=== PATIENT | female | born 1970 | race Caucasian/White ===

== ENCOUNTER 2018-04-23 11:38 | Emergency (ER) | payer OTHER ==
[~2018-04-23] VITALS: Ht 160 cm; Wt 103.9 kg
--- NOTE | 2018-04-23 11:48 | NUR ---
PT AMBULATES TO BED 6
[2018-04-23 11:54] VITALS: BP 140/85
--- NOTE | 2018-04-23 11:58 | NUR ---
PATIENT PRESENTS TO ED WITH c/o persistant productive cough, chest congestion, fatigue, bodyaches x 3 adds symptoms feel as worsening full clear speech , no tripoding or accessory muscle use noted . DENIES N/V/D; SKIN IS PINK/WARM/DRY; AAOX4 WITH EVEN AND STEADY GAIT; ; HR EVEN AND REGULAR; ; PATIENT STATES PAIN OF 0/10 AT THIS TIME; VSS; PATIENT POSITIONED FOR COMFORT; HOB ELEVATED; BEDRAILS UP X2; BED DOWN. ER MD MADE AWARE OF PT STATUS.
[2018-04-23] MEDS ORDERED: ALBUTEROL SULFATE/IPRATROPIU 3 ML SOL IH ONE (12:45)
[2018-04-23] MEDS ORDERED: cefTRIAXone 1,000 MG in LIDOCAINE 1% ***ER ONLY *** 2.1 ML IM ONE (12:45)
[2018-04-23] MEDS ORDERED: methylPREDNISolone SS 125 MG in WATER STERILE 2 ML IM ONE (12:45)
[2018-04-23 12:58] LABS: APPEARANCE,URINE CLEAR (CLEAR); BILIRUBIN,URINE NEGATIVE (NEGATIVE); BLOOD, URINE NEGATIVE (NEGATIVE); COLOR,URINE YELLOW (YELLOW); LEUKOCYTE ESTERASE ,URINE TRACE (NEGATIVE); NITRITE, URINE NEGATIVE (NEGATIVE); UGLUCOSE NEGATIVE (NEGATIVE)
[2018-04-23] MEDS ORDERED: cefTRIAXone 1,000 MG VIAL ONE (13:00)
[2018-04-23] MEDS ORDERED: LIDOCAINE MPF 1% 5mL VIAL ONE (13:01)
[2018-04-23 13:06] LABS: BARBITURATE, URINE NEG. ng/ml (NEG <=200); BENZODIAZEPINE, URINE NEG. ng/mL (NEG <=200); CANNABINOID, URINE NEG. ng/mL (NEG <=50); COCAINE, URINE NEG. ng/mL (NEG <=300); OPIATE, URINE NEG. ng/mL (NEG <=2000); PHENCYCLIDINE SCREEN,URINE NEG. ng/mL (NEG <=25)
[2018-04-23 13:13] LABS: RBC,URINE 0-5 (RARE) /HPF (0-5); WBC,URINE 6-15 (FEW) /HPF (0-5)
[2018-04-23 13:50] VITALS: BP 138/82
--- NOTE | 2018-04-23 13:50 | NUR ---
Patient discharged with v/s stable. Written and verbal after care instructions given and explained. Patient alert, oriented and verbalized understanding of instructions. Ambulatory with steady gait. All questions addressed prior to discharge. ID band removed. Patient advised to follow up with PMD. Rx of LEVAQUIN 500MG AND PROMETHAZINE DM AND MOTRIN 800MG given. Patient educated on indication of medication including possible reaction and side effects. Opportunity to ask questions provided and answered.
== END 2018-04-23 13:50 | disposition home or self-care (01) ==
LOC: MED 11:38
DX: J02.9 Acute pharyngitis, unspecified (principal); J06.9 Acute upper respiratory infection, unspecified; N39.0 Urinary tract infection, site not specified; I10 Essential (primary) hypertension
CPT/HCPCS: 36415; 80305; 81001; 81025; 87086; 87804; 94640; 96372; 99283; J0696; J2001; J2930; J7620

== ENCOUNTER 2019-01-31 13:22 | Emergency (ER) | payer OTHER ==
[~2019-01-31] VITALS: Ht 162.6 cm; Wt 99.8 kg
[2019-01-31 13:29] VITALS: BP 145/72
[2019-01-31] MEDS ORDERED: LIDOCAINE MPF 1% 10 MG/ML VIAL INJ ONE (13:55)
--- NOTE | 2019-01-31 13:57 | NUR ---
Patient states that she began to have back pain in her lower back, right side yesterday. She describes the pain as a sharp stabbing pain with walking and standing. She took Ibprofen yesterday and it did not relieve the pain. She denies any nausea, vomitting, pain with urination. Addendum: 01/31/19 at 1404 by [facility] HX: bulging disc in the lumbar area, kidney stone, htn
--- NOTE | 2019-01-31 14:42 | NUR ---
DR. PERKINS AT BEDSIDE.
[2019-01-31] MEDS ORDERED: IBUPROFEN 400 MG TAB PO ONE (14:50)
[2019-01-31 15:42] VITALS: BP 132/65
== END 2019-01-31 15:40 | disposition home or self-care (01) ==
LOC: MED 13:22
DX: M54.5 Low back pain (principal); I10 Essential (primary) hypertension; Z87.39 Personal history of other diseases of the musculoskeletal system and connective tissue
CPT/HCPCS: 20552; 99284; J2001

== ENCOUNTER 2020-01-06 16:04 | Emergency (ER) | payer OTHER ==
[~2020-01-06] VITALS: Ht 162.6 cm; Wt 108.4 kg
[2020-01-06 16:06] VITALS: BP 123/68
--- NOTE | 2020-01-06 16:20 | NUR ---
49 YEAR OLD FEMALE COMPLAINS OF ABDOMINAL PAIN, NAUSEA, AND VOMITTING X YESTERDAY. PT STATES PAIN RADIATES FROM ABDOMINAL TO LOWER BACK FLANK AREA. PT AOX4, BREATHING EVEN AND UNLABORED, SKIN WARM AND DRY. BED IN LOWEST POSITION, LOCKED, BED RAIL UPX1. PMH - HTN ALLERGIES - NKA
[2020-01-06] MEDS ORDERED: NACL 0.9% 500 ML IV ONE (16:35)
[2020-01-06] MEDS ORDERED: KETOROLAC 30 MG/ML VIAL IVP ONE (16:35)
[2020-01-06 17:11] LABS: BASOPHILS # (AUTO) 0.1 K/uL (0.00-0.22); BASOPHILS % (AUTO) 0.9 % (0.0-2.0); EOSINOPHILS # (AUTO) 0.1 K/uL (0-0.4); HEMATOCRIT 38.6 % (36-48); HEMOGLOBIN 12.6 g/dL (12.0-16.0); LYMPHOCYTES # (AUTO) 1.3 K/uL (2.5-16.5); MEAN CORPUSCULAR HEMOGLOBIN 28 pg (27-31); MEAN CORPUSCULAR HGB CONC 33 g/dL (33-37); MEAN CORPUSCULAR VOLUME 86.1 fL (80-94); MONOCYTES # (AUTO) 0.9 K/uL (0.8-1.0); MONOCYTES % (AUTO) 6.3 % (1.7-9.3); NEUTROPHILS % (AUTO) 82.8 % (42.2-75.2); PLATELET COUNT (AUTO) 380 K/uL (140-450); RED BLOOD CELL COUNT(AUTO) 4.48 MIL/uL (4.20-5.40); RED CELL DISTRIBUTION WIDTH 15.5 % (11.6-13.7); WHITE BLOOD COUNT (AUTO) 14.5 K/uL (4.8-10.8)
[2020-01-06 17:34] LABS: ALBUMIN 3.9 g/dL (3.4-5.0); ANION GAP 13.6 (8-16); CARBON DIOXIDE 25.2 mmol/L (21-32); CREATININE 0.8 mg/dL (0.6-1.3); POTASSIUM 3.8 mmol/L (3.5-5.1); TOTAL BILIRUBIN 0.7 mg/dL (0.0-1.0)
[2020-01-06 17:59] VITALS: BP 123/68
--- NOTE | 2020-01-06 18:00 | NUR ---
DPatient discharged with v/s stable. Written and verbal after care instructions about abdominal pain and constipation given and explained. Patient alert, oriented and verbalized understanding of instructions. Ambulatory with steady gait. All questions addressed prior to discharge. ID band removed. Patient advised to follow up with PMD. Rx of miralax and mineral oil given. Patient educated on indication of medication including possible reaction and side effects. Opportunity to ask questions provided and answered.
--- NOTE | 2020-01-08 03:09 | NUR ---
late entry----- spoke with Stephen STARR regarding end times, as follows: 01/06/20 Sodium Chloride 0.9%, End time: [id number]
== END 2020-01-06 17:59 | disposition home or self-care (01) ==
LOC: MED 16:04
DX: K59.00 Constipation, unspecified (principal); R19.7 Diarrhea, unspecified; I10 Essential (primary) hypertension
CPT/HCPCS: 36415; 74018; 76705; 80053; 83690; 85025; 96361; 96374; 99285; J1885; Q0092; J7030

== ENCOUNTER 2022-03-26 10:47 | Day surgery (SDC) | payer OTHER ==
[~2022-03-26] VITALS: Ht 162.6 cm; Wt 104.3 kg
[2022-03-26] MEDS ORDERED: MIDAZOLAM 5 MG/5 ML VIAL ONE (11:54)
[2022-03-26] MEDS ORDERED: LIDOCAINE 2% 100 MG/5 ML UJET TP ONE (11:54)
[2022-03-26] MEDS ORDERED: fentaNYL citrate 0.05 MG/ML VIAL ONE (11:54)
[2022-03-26] MEDS ORDERED: fentaNYL citrate 0.05 MG/ML VIAL IVP ONE (13:20)
[2022-03-26] MEDS ORDERED: MIDAZOLAM 2 MG/2 ML VIAL IVP ONE (13:20)
== END 2022-03-26 13:50 | disposition home or self-care (01) ==
LOC: MDS 10:47 → MMU 10:48 → MDS 13:50
PROVIDERS: ATTEND Internal Medicine Gastroenterology
DX: Z12.11 Encounter for screening for malignant neoplasm of colon (principal); K57.30 Diverticulosis of large intestine without perforation or abscess without bleeding; K21.9 Gastro-esophageal reflux disease without esophagitis; I10 Essential (primary) hypertension; E66.9 Obesity, unspecified; Z20.822 Contact with and (suspected) exposure to COVID-19; Z79.899 Other long term (current) drug therapy; Z68.30 Body mass index [BMI] 30.0-30.9, adult
CPT/HCPCS: 36415; 43239; 45378; 86677; 87426; J2250; J3010

== ENCOUNTER 2022-11-09 11:40 | Emergency (ER) | payer OTHER ==
[~2022-11-09] VITALS: Ht 162.6 cm; Wt 104.6 kg
[2022-11-09 11:50] VITALS: BP 140/75; PULSE 80; RESP 20; TEMP 97.6; O2SAT 100
[2022-11-09] MEDS ORDERED: ONDANSETRON 4 MG ODT PO ONE (14:40)
[2022-11-09] MEDS ORDERED: KETOROLAC 30 MG/ML VIAL IM ONE (14:40)
[2022-11-09 15:11] LABS: BASOPHILS # (AUTO) 0.2 K/uL (0.00-0.22); EOSINOPHILS # (AUTO) 0.1 K/uL (0-0.4); EOSINOPHILS % (AUTO) 0.6 % (0.0-4.0); HEMATOCRIT 37.6 % (36-48); HEMOGLOBIN 12.1 g/dL (12.0-16.0); LYMPHOCYTES # (AUTO) 1.4 K/uL (2.5-16.5); LYMPHOCYTES % (AUTO) 8.3 % (20.5-51.1); MEAN CORPUSCULAR HEMOGLOBIN 26 pg (27-31); MEAN CORPUSCULAR HGB CONC 32 g/dL (33-37); MEAN CORPUSCULAR VOLUME 81.5 fL (80-94); MONOCYTES # (AUTO) 1.1 K/uL (0.8-1.0); MONOCYTES % (AUTO) 6.4 % (1.7-9.3); NEUTROPHILS # (AUTO) 14.3 K/uL (1.8-7.7); NEUTROPHILS % (AUTO) 83.7 % (42.2-75.2); PLATELET COUNT (AUTO) 423 K/uL (140-450); RED BLOOD CELL COUNT(AUTO) 4.62 MIL/uL (4.20-5.40); RED CELL DISTRIBUTION WIDTH 16.5 % (11.6-13.7)
[2022-11-09 15:23] LABS: APPEARANCE,URINE CLEAR (CLEAR); BILIRUBIN,URINE NEGATIVE (NEGATIVE); BLOOD, URINE NEGATIVE (NEGATIVE); COLOR,URINE YELLOW (YELLOW); LEUKOCYTE ESTERASE ,URINE NEGATIVE (NEGATIVE); NITRITE, URINE NEGATIVE (NEGATIVE); PROTEIN,URINE NEGATIVE (NEGATIVE); UGLUCOSE NEGATIVE (NEGATIVE); UROBILINOGEN,URINE 0.2 EU/dL (0.2 - 1)
[2022-11-09 15:23] LABS: ALBUMIN 3.6 g/dL (3.4-5.0); ANION GAP 14.6 (8-16); CALCIUM 8.9 mg/dL (8.5-10.1); CARBON DIOXIDE 24.5 mmol/L (21-32); CREATININE 0.8 mg/dL (0.6-1.3); POTASSIUM 4.1 mmol/L (3.5-5.1); TOTAL BILIRUBIN 0.8 mg/dL (0.0-1.0); TOTAL PROTEIN, SERUM 7.7 g/dL (6.4-8.2)
[2022-11-09] MEDS ORDERED: CIPR500T4 PO ×2 (16:41→17:04)
[2022-11-09] MEDS ORDERED: ACET-8905 PO ×2 (16:41→17:04)
[2022-11-09] MEDS ORDERED: ONDA-188 SL ×2 (16:41→17:04)
[2022-11-09] MEDS ORDERED: METR-435 PO ×2 (16:41→17:04)
[2022-11-09] MEDS ORDERED: metroNIDAZOLE 250 MG TAB PO ONE (16:45)
[2022-11-09 16:58] VITALS: BP 122/75; PULSE 74; RESP 17; O2SAT 98
== END 2022-11-09 17:20 | disposition home or self-care (01) ==
LOC: MED 11:40
DX: K57.92 Diverticulitis of intestine, part unspecified, without perforation or abscess without bleeding (principal); I11.0 Hypertensive heart disease with heart failure; Z79.899 Other long term (current) drug therapy
CPT/HCPCS: 36415; 74176; 80053; 81003; 81025; 83690; 85025; 96372; 99285; J1885; Q0162

== ENCOUNTER 2023-04-16 00:52 | Emergency (ER) | payer OTHER ==
[~2023-04-16] VITALS: Ht 162.6 cm; Wt 108.0 kg
[~2023-04-16 00:52] MED LIST: ACET-8905 PO; CIPR500T4 PO; METR-435 PO; ONDA-188 SL
[2023-04-16 01:04] VITALS: BP 130/98; PULSE 64; RESP 16; TEMP 97.8; O2SAT 99
[2023-04-16] MEDS ORDERED: SULF-59 PO (02:16)
== END 2023-04-16 02:45 | disposition home or self-care (01) ==
LOC: MED 00:52
DX: L73.2 Hidradenitis suppurativa (principal); R21 Rash and other nonspecific skin eruption; I10 Essential (primary) hypertension; Z79.899 Other long term (current) drug therapy; Z79.2 Long term (current) use of antibiotics
CPT/HCPCS: 99283

== ENCOUNTER 2023-04-22 10:21 | Emergency (ER) | payer OTHER ==
[~2023-04-22] VITALS: Ht 162.6 cm; Wt 59.9 kg
[~2023-04-22 10:21] MED LIST changes: +SULF-59 PO
[2023-04-22 10:22] VITALS: BP 121/64; PULSE 77; RESP 19; TEMP 97.2; O2SAT 97
[2023-04-22] MEDS ORDERED: KETOROLAC 60 MG/2 ML VIAL IM ONE (10:50)
[2023-04-22] MEDS ORDERED: TRAM-748 PO (10:56)
== END 2023-04-22 11:35 | disposition home or self-care (01) ==
LOC: MED 10:21
DX: M54.30 Sciatica, unspecified side (principal); M54.50 Low back pain, unspecified; I11.9 Hypertensive heart disease without heart failure; Z79.899 Other long term (current) drug therapy
CPT/HCPCS: 96372; 99283; J1885

== ENCOUNTER 2023-12-12 15:03 | Emergency (ER) | payer OTHER ==
[~2023-12-12] VITALS: Ht 162.6 cm; Wt 105.7 kg
[~2023-12-12 15:03] MED LIST changes: +TRAM-748 PO
[2023-12-12 15:19] VITALS: BP 154/90; PULSE 79; RESP 17; TEMP 98.7; O2SAT 95
[2023-12-12] MEDS: LIDOCAINE MPF 1% 10 MG/ML VIAL INJ ONE (16:34)
[2023-12-12] MEDS ORDERED: LID5T TP (17:33)
[2023-12-12] MEDS ORDERED: BENA10TA81 PO (17:33)
[2023-12-12 17:47] VITALS: BP 154/90; PULSE 79; RESP 17; TEMP 98.7; O2SAT 95
== END 2023-12-12 17:47 | disposition home or self-care (01) ==
LOC: MED 15:03
DX: G44.209 Tension-type headache, unspecified, not intractable (principal); I10 Essential (primary) hypertension; Z79.899 Other long term (current) drug therapy
CPT/HCPCS: 20552; 99284; J2001; 20553